=== PATIENT | female | born 2005 | race Caucasian/White ===

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

== ENCOUNTER 2024-02-27 17:56 | Emergency (ER) | payer OTHER, SELFPAY ==
[2024-02-27 19:12] VITALS: BP 115/79; PULSE 96; RESP 18; TEMP 36.8; O2SAT 99; BMI 27.4
--- NOTE | 2024-02-27 19:13 | ED_ITS ---
HPI - URI/Sore Throat General Chief Complaint: General Medical Stated Complaint: Pain in throat & L ear, feverish x2days Time Seen by Provider: 02/27/24 19:14 Source: patient Mode of arrival: ambulatory Limitations: no limitations History of Present Illness ED Provider: RICHMOND JEFFERS Narrative: 18 yo female with no PMH here with c/o sore throat and L ear pain x 2 days. NO travel or sick contacts. Subj fevers and chills she can swallow but it hurts. She has no other symptoms, no n/v/d. MD elicited complaint: fever and sore throat Onset (ago): day(s) (2) Consistency: constant Severity: moderate Able to tolerate fluids by mouth: Yes Exacerbating factors: swallowing Relieving factors: nothing Context: other Associated symptoms: fever, chills, sore throat and ear pain Treatments prior to arrival: none Related Data Previous Rx's ?Medication ?Instructions ?Recorded cephalexin 500 mg capsule 500 mg PO QID #28 caps 12/16/20 doxycycline hyclate 100 mg capsule 100 mg PO BID 7 days #14 caps 12/16/20 mupirocin 2 % topical ointment 1 appl topical TID 7 days #22 grams 12/16/20 amoxicillin 500 mg tablet 500 mg PO BID #20 tabs 02/27/24 fluconazole 150 mg tablet 150 mg PO Q3D 2 doses #2 tabs 02/27/24 Allergies Allergy/AdvReac Type Severity Reaction Status Date / Time No Known Allergies Allergy Verified 02/27/24 19:16 Review of Systems Review of Systems: Constitutional : pos Fever, pos Chills, No Fatigue ENT/Mouth : pos sore throat, No Rhinorrhea Eyes: No Eye Pain, No Swelling, No Redness Cardiovascular : No Chest Pain, No SOB, No Dyspnea on Exertion Respiratory : No Cough, No Sputum Gastrointestinal : No Nausea, No Vomiting, No Diarrhea, No abdominal Pain Genitourinary : No Dysuria, No Urinary Frequency, No Hematuria, Musculoskeletal : No joint pain, No Myalgias, No Joint Swelling Skin : No Skin Lesions, No rash Neuro : No Weakness, No Numbness, No Dizziness, positive Headache All other systems reviewed and are negative PMFSH Past Medical History Attestation statement: The following information was validated with the patient. Source: old records reviewed Medical History No pertinent past medical history Social History Social History (Updated 02/27/24 @ 19:19 by Safia Mendosa DO) Patient Tobacco Use Status: Never used Tobacco Physical Exam Vital Signs: Appearance: Alert. Oriented X3. No acute distress. Eyes: Pupils equal, round and reactive to light. ENT: Pharynx moderate tonsilar erythema, exudates but uvula midline, L TM normal no infection Neck: Normal inspection. Neck supple. CVS: Normal heart rate and rhythm. Pulses normal. Respiratory: No respiratory distress. Breath sounds normal. Abdomen: Soft and nontender. Skin: Skin warm and dry. Normal skin color. Normal skin turgor. Extremities: No lower extremity edema. No calf ttp Neuro: Oriented X 3. No motor deficit. No sensory deficit. CN2-12 intact Medical Decision Making Medical Decision Making [facility] Narrative: 18 yo female with no sig PMH here with c/o ear pain and sore throat she is able to tolerate PO at this time will treat clinically based off history and her presentation - start on amoxicillin for 10 days, given strict precautions to return. Not toxic no signs of CAR BODY INSPECTOR or abscess. Differential Diagnosis Differential Diagnoses: The differential diagnosis associated with the presentation includes strep throat clinically and based off history will treat no signs of CAR BODY INSPECTOR Admission/Observation Consideration of admission/observation: Escalation of care including admission/observation considered tolerating PO stable for DC Independent Historian Clinical information obtained from an independent historian. History obtained from or confirmed by: Spouse Prescription Management I considered prescription management with: Antibiotic Discharge Plan Discharge Clinical Impression: Strep throat Patient Disposition: Home, Self-Care Instructions: Strep Throat (ED) Additional Instructions: stay hydrated drink plenty of fluids take motrin and tylenol for pain return for inability to eat or drink, severe pain, confusion throw away toothbrush after 2 doses of antibiotics Prescriptions: New amoxicillin 500 mg tablet 500 mg PO BID Qty: 20 0RF fluconazole 150 mg tablet 150 mg PO Q3D Qty: 2 0RF Rx Instructions: may repeat second dose 72 hrs after first dose if symptoms persist No Action mupirocin 2 % ointment 1 appl topical TID 7 Days Qty: 22 0RF cephalexin 500 mg capsule 500 mg PO QID Qty: 28 0RF doxycycline hyclate 100 mg capsule 100 mg PO BID 7 Days Qty: 14 0RF Stand Alone Forms: Work/School Release Print Language: Cape Verdean
[2024-02-27 19:22] VITALS: BP 115/79; PULSE 96; RESP 18; TEMP 36.8; O2SAT 99
== END 2024-02-27 19:21 | disposition home or self-care (01) ==
PROVIDERS: Emergency Provider Emergency Medicine
DX: J02.0 Streptococcal pharyngitis (principal)
CPT/HCPCS: 99282; 99283

== ENCOUNTER 2024-03-17 18:04 | Emergency (ER) | payer OTHER, SELFPAY ==
[2024-03-17 18:08] VITALS: BP 106/70; PULSE 70; RESP 18; TEMP 36.5; O2SAT 98; BMI 26.4
--- NOTE | 2024-03-17 18:09 | ED.URI ---
HPI - URI/Sore Throat General Chief Complaint: General Medical Stated Complaint: Sore Throat Time Seen by Provider: 03/17/24 18:12 Source: patient, RN notes reviewed and old records reviewed Mode of arrival: ambulatory History of Present Illness ED Provider: Kira Beltran PA-C [facility] Narrative: 18-year-old female with a past medical history of strep throat diagnosed in our ED on 02/27/2024 s/p finishing course of amoxicillin presenting to the ED complaining of sore throat, subjective fever, and neck stiffness x few days. States finish antibiotics, feels as though she did get better however symptoms returned. Also reports left ear pain. Denies difficulty or inability to swallow, chills, travel, cough Related Data Previous Rx's ?Medication ?Instructions ?Recorded cephalexin 500 mg capsule 500 mg PO QID #28 caps 12/16/20 doxycycline hyclate 100 mg capsule 100 mg PO BID 7 days #14 caps 12/16/20 mupirocin 2 % topical ointment 1 appl topical TID 7 days #22 grams 12/16/20 amoxicillin 500 mg tablet 500 mg PO BID #20 tabs 02/27/24 fluconazole 150 mg tablet 150 mg PO Q3D 2 doses #2 tabs 02/27/24 azithromycin 250 mg tablet See Rx Instructions PO .COMPLEX #6 03/18/24 tabs prednisone 50 mg tablet 50 mg PO DAILY 5 days #5 tabs 03/18/24 Allergies Allergy/AdvReac Type Severity Reaction Status Date / Time No Known Allergies Allergy Verified 03/18/24 04:47 Review of Systems Review of Systems: Yes all other systems are reviewed and are negative Constitutional: Constitutional: Reports as per [facility] Past Medical History Attestation statement: The following information was validated with the patient. Source: old records reviewed Medical History No pertinent past medical history Social History Social History Patient Tobacco Use Status: Never used Tobacco Advance Directives: No Do you have a plan to hurt others: No Plan Physical Exam Vital Signs: Vital Signs: Last Vital Signs Temp 99.1 F 03/17/24 19:38 Pulse 78 03/17/24 19:38 Resp 16 03/17/24 19:38 BP 113/79 03/17/24 19:38 Pulse Ox 98 03/17/24 19:38 O2 Del Method Room Air 03/17/24 19:38 BMI result Body Mass Index 26.4 Const: General: cooperative, healthy appearing and no acute distress Orientation/consciousness: patient oriented x3 Limitations: no limitations HEENT: Head: Yes normal to inspection and Yes atraumatic Ears: hearing grossly normal bilaterally, external ears normal, TM's normal bilaterally and mastoids normal General nose exam: Normal external nose present Face and sinus: Yes normal facial exam Mouth: Normal oral and palatal mucosa present and no drooling Throat: Yes uvula midline, Yes abnormal tonsil (+ mild tonsillar erythema and swelling with faint left tonsillar exudates), No uvula laterally displaced and No uvular edema Eyes: General: appearance normal, both eyes and all related structures EOM: EOMs intact bilaterally Neck: Neck: Yes normal visual inspection, Yes full ROM, Yes no meningeal signs and No anterior neck swelling Resp: Effort & Inspection: normal respiratory effort and no respiratory distress Auscultation: clear to auscultation bilaterally Cardio: Rate: regular rate Heart sounds: S1 normal heart sound present and S2 normal heart sound present GI: Inspection: Yes normal to inspection Palpation (GI): Soft to palpation, nontender, no guarding and not rigid : General: Yes no CVA tenderness Back/Spine/Pelvis: Back: no CVA tenderness Skin: Rashes: no rashes Wounds: no wounds Neuro: General: patient oriented x3, tone normal and no meningeal signs Cranial nerves: Yes CN's II-XII intact bilaterally Gait exam (Neuro): Normal gait present Extrem: General: Yes normal to inspection Course Course Course Narrative: -193--COVID/flu/RSV and rapid strep negative >will test for mono > will d/c prior to results w/close PCP f/u. Will be contacted if positive > discussed with patient will avoid additional Abx at this time as testing is negative & just finished course of Abx. -Monospot negative Results discussed with patient including worrisome signs and symptoms and strict return precautions, and when to return to the emergency department. They verbalized understanding and feel safe for discharge at this time. Medical Decision Making Medical Decision Making [facility] Narrative: 18-year-old female with a past medical history of strep throat diagnosed in our ED on 02/27/2024 s/p finishing course of amoxicillin presenting to the ED complaining of sore throat, subjective fever, and neck stiffness x few days. On exam vital signs stable, NAD, nontoxic appearing, physical exam as noted above. No meningeal signs or appreciable with neck stiffness. Bilateral tonsillar erythema and swelling noted slightly greater on the left with left-sided tonsillar exudates. Uvula midline. No evidence of PRINCIPAL TECHNICAL SPECIALIST/retropharyngeal abscess. No evidence of respiratory compromise or distress, talking in complete sentences. No drooling. Concern for strep pharyngitis vs viral illness. No evidence of acute otitis. Unlikely mastoiditis Plan: Viral testing, rapid strep Please refer to course for remaining clinical decision making, interpretation of labs/imaging results, and discussions with consultants and/or family members. Differential Diagnosis Differential Diagnoses: The differential diagnosis associated with the presentation includes As above Admission/Observation Consideration of admission/observation: Escalation of care including admission/observation considered Lab Data MDM Lab Attestation statement: I reviewed the patient's lab results. Labs: Lab Results 03/17/24 03/17/24 Range/Units 18:20 19:37 Monoscreen Negative (Negative) Influenza Type A (PCR) NEGATIVE (Negative) Influenza Type B (PCR) NEGATIVE (Negative) RSV RNA Qual (PCR) NEGATIVE (Negative) SARS-CoV-2 RNA (RT-PCR) NEGATIVE (Negative) S. pyogenes GrpA UNIQUE Negative (Negative) Radiology Impression Discussion of test interpretation with radiology: I have reviewed the radiologist's reading. External Record Review External record reviewed: Inpatient record, Office record, Outpatient record, Prior outpatient labs, Prior outpatient radiology, Primary care record and Outside ED record Tests considered The following testing was considered but not selected: As above Prescription Management I considered prescription management with: Antibiotic Chronic Conditions Patient?s care impacted by: Other Social Determinants Patient?s care significantly limited by Social Determinants of Health including: Other Social Determinant of Health Attestation Attending Attestation: I was personally present and available for consultation in the ED. I have reviewed everything on the chart that is available and agree with the documentation provided by the RIGOBERTO including discussion about the assessment, treatment plan and discussion. Based on medical record the care appears appropriate. Laron Carrillo MD [facility] Emergency Medicine Discharge Plan Discharge Clinical Impression: Pharyngitis Patient Disposition: Home, Self-Care Instructions: Pharyngitis (ED) Additional Instructions: You tested negative for COVID, flu, RSV and strep throat We tested you for mononucleosis, this is currently pending, you will be contacted with positive results only Gargle with warm saltwater Take Tylenol and ibuprofen Eat cold foods Follow up with her doctor If you have persistent or worsening symptoms, difficulty or inability to swallow, fever unresolved with medications return to the ED Prescriptions: No Action mupirocin 2 % ointment 1 appl topical TID 7 Days Qty: 22 0RF cephalexin 500 mg capsule 500 mg PO QID Qty: 28 0RF doxycycline hyclate 100 mg capsule 100 mg PO BID 7 Days Qty: 14 0RF azithromycin 250 mg tablet See Rx Instructions .ROUTE .COMPLEX Qty: 6 0RF Rx Instructions: For 250 mg dose pack: take 500 mg today (day 1), then 250 mg for 4 days (days 2-5) prednisone 50 mg tablet 50 mg PO DAILY 5 Days Qty: 5 0RF amoxicillin 500 mg tablet 500 mg PO BID Qty: 20 0RF fluconazole 150 mg tablet 150 mg PO Q3D Qty: 2 0RF Rx Instructions: may repeat second dose 72 hrs after first dose if symptoms persist Referrals: Physician,None [Primary Care Provider] - 3 days Interventions: ED Discharge Assessment Last Done: 03/17/24 19:38 Discharge Date/Time: 03/17/24 19:39 Print Language: Grenadian
[2024-03-17 18:53] LABS: IDNOW Serial# 6674DD1D; Strep A Nucleic Acid Negative (Negative)
[2024-03-17 19:25] LABS: Influenza A PCR NEGATIVE (Negative); Influenza B PCR NEGATIVE (Negative); Resp Syncy Virus RNA Qual PCR NEGATIVE (Negative); SARS COV2 PCR INHOUSE NEGATIVE (Negative)
[2024-03-17 19:33] VITALS: BP 113/79; PULSE 78; RESP 16; TEMP 37.3; O2SAT 98
[2024-03-17 19:38] VITALS: BP 113/79; PULSE 78; RESP 16; TEMP 37.3; O2SAT 98
[2024-03-17 20:01] LABS: Monotest Negative (Negative)
== END 2024-03-17 19:39 | disposition home or self-care (01) ==
PROVIDERS: Physician Assistant; Emergency Provider Emergency Medicine
DX: J02.9 Acute pharyngitis, unspecified (principal); H92.02 Otalgia, left ear; R50.9 Fever, unspecified; Z03.818 Encounter for observation for suspected exposure to other biological agents ruled out
CPT/HCPCS: 0241U; 36415; 86308; 87651; 99282; 99283

== ENCOUNTER 2024-03-18 04:43 | Emergency (ER) | payer SELFPAY ==
--- NOTE | ~2024-03-18 | CT_ITS ---
CLINICAL HISTORY: sore throat swollen tonsils CT soft tissue neck with contrast Comparison: None Findings: The visualized intracranial contents are unremarkable. The tonsils may be enlarged. Cervical chain adenopathy is likely reactive. Salivary glands are within normal limits. No sialoliths. No suspicious thyroid nodules. Visualized lung apices are clear. No acute fractures. There is edema of the soft palate and uvula. There is no evidence of abscess. IMPRESSION: Edema/inflammation of the uvula and soft palate with likely enlarged and possibly inflamed tonsils. No evidence of abscess. Please correlate clinically. Likely reactive cervical chain adenopathy. This document has been electronically signed by: Damon Lincoln MD on 03/18/2024 11:01:26
[2024-03-18 04:45] VITALS: BP 109/72; PULSE 82; RESP 16; TEMP 36.9; O2SAT 100; BMI 26.4
--- NOTE | 2024-03-18 07:13 | ED_ITS ---
HPI - General Adult General Chief complaint: General Medical Stated complaint: sore throat Time Seen by Provider: 03/18/24 06:52 Source: patient Mode of arrival: ambulatory Limitations: no limitations History of Present Illness ED Provider: ORQUIDEA Kohli HPI narrative: 18-year-old female presents to the emergency department with sore throat, fatigue, malaise, myalgias she reports she was seen here earlier however decided to leave she had lab work done however never got the results. She reports she tested positive for strep throat 2 weeks ago she took amoxicillin 500 mg p.o. b.i.d. times 10 days with little to no relief. She reports subjective chills, nausea. Denies vomiting, diarrhea, headache, vision changes, dizziness, weakness, chest pain, shortness of breath, abdominal pain. No sick contacts. No recent travel. No concerns for STDs. Related Data Previous Rx's ?Medication ?Instructions ?Recorded cephalexin 500 mg capsule 500 mg PO QID #28 caps 12/16/20 doxycycline hyclate 100 mg capsule 100 mg PO BID 7 days #14 caps 12/16/20 mupirocin 2 % topical ointment 1 appl topical TID 7 days #22 grams 12/16/20 amoxicillin 500 mg tablet 500 mg PO BID #20 tabs 02/27/24 fluconazole 150 mg tablet 150 mg PO Q3D 2 doses #2 tabs 02/27/24 azithromycin 250 mg tablet See Rx Instructions PO .COMPLEX #6 03/18/24 tabs prednisone 50 mg tablet 50 mg PO DAILY 5 days #5 tabs 03/18/24 Allergies Allergy/AdvReac Type Severity Reaction Status Date / Time No Known Allergies Allergy Verified 03/18/24 04:47 Review of Systems 2 Review of Systems: Yes all other systems are reviewed and are negative [facility] Past Medical History Attestation statement: The following information was validated with the patient. Source: old records reviewed and nursing notes reviewed Medical History No pertinent past medical history Social History Social History Patient Tobacco Use Status: Never used Tobacco Advance Directives: No Do you have a plan to hurt others: No Plan Physical Exam ED Vital Signs: Vital Signs - 24 hr 03/18/24 04:45 03/18/24 10:35 Temperature 98.4 F 98.1 F Pulse Rate 82 72 Respiratory Rate 16 16 Blood Pressure 109/72 104/62 Pulse Oximetry 100 98 Oxygen Delivery Method Room Air Room Air BMI result Body Mass Index 26.4 vss Appearance: Alert.? Oriented X3.? No acute distress.? Head: Normocephalic, atraumatic, no step-offs or deformities Eyes: Pupils equal, round and reactive to light.? ENT: Pharynx with bilateral tonsillar hypertrophy, exudate noted to the right tonsil, uvula midline. Patient is speaking in full sentences controlling secretions well. No signs of abscess. Normal hard and soft palates..? Neck: Normal inspection.? Neck supple.? CVS: Normal heart rate and rhythm.? Pulses normal.? Respiratory: No respiratory distress.? Breath sounds normal.? Abdomen: Soft and nontender.? Skin: Skin warm and dry.? Normal skin color.? Normal skin turgor.? Extremities: No lower extremity edema.? No calf ttp. 5/5 strength to bilateral upper and lower extremities Neuro: Oriented X 3.? No motor deficit.? No sensory deficit. CN 2-12 intact Course Reevaluation(s) Reevaluation #1: Patient's CBC with leukocytosis and neutrophil predominance. ESR normal. Chemistry no acute findings needing intervention. CRP elevated 2.48. Patient voices no concerns for STDs or STIs however willing to get prophylactically treated in case this is gonococcal. Time: 11:09 Reevaluation #2: Patient is a throat swabs have been obtained and are pending. CT soft tissue neck with edema and inflammation of the uvula and soft palate with likely enlarged and possibly inflamed tonsils. No evidence of abscess. Will treat with azithromycin as she has already been treated with amoxicillin will also give prednisone. Discuss this case with my attending. Will also give 1 time dose of IM ceftriaxone in case this is gonococcal pharyngitis. Patient is aware of plan she verbalizes understanding. Educated patient on diagnosis and treatment plan, answered all question, patient verbalizes understanding. At this time patient will be discharged home, advised to return with new or worsening symptoms. Educated on worrisome signs and symptoms and when to return. At this time I feel comfortable discharge home. Time: 11:15 Medications Administered Discontinued Medications Generic Name Dose Route Start Last Admin Trade Name Freq PRN Reason Stop Dose Admin Dexamethasone Sodium Phosphate 10 mg 03/18/24 07:17 03/18/24 08:18 Dexamethasone Sod Phosphate 10 Mg/Ml Vial IVPUSH 03/18/24 07:18 10 mg ONCE ONE Administration Iohexol 100 ml 03/18/24 10:05 03/18/24 10:05 Iohexol 350 Mg/Ml 100 Ml Infus..Btl IV 03/18/24 10:06 60 ml ONCE ONE Administration Ketorolac Tromethamine 30 mg 03/18/24 07:17 03/18/24 08:18 Ketorolac Tromethamine 30 Mg/Ml Vial IM 03/18/24 07:18 30 mg ONCE ONE Administration Medical Decision Making Medical Decision Making [facility] Narrative: 18-year-old female presents with worsening sore throat reports 2 weeks ago she was positive for strep she completed a course of antibiotics with little to no improvement. Physical exam Pharynx with bilateral tonsillar hypertrophy, exudate noted to the right tonsil, uvula midline. Patient is speaking in full sentences controlling secretions well. No signs of abscess. Normal hard and soft palates..? History and physical exam concerning for recurrence of strep pharyngitis versus mononucleosis. No signs of peritonsillar abscess, retropharyngeal abscess, Tong's, acute threat to airway. Plan at this time will give 10 mg of p.o. Decadron and repeat viral studies. I may also obtain a swab for gonococcal pharyngitis. Differential Diagnosis Differential Diagnoses: The differential diagnosis associated with the presentation includes (History and physical exam concerning for recurrence of strep pharyngitis versus mononucleosis. No signs of peritonsillar abscess, retropharyngeal abscess, Tong's, acute threat to airway.) Admission/Observation Consideration of admission/observation: Escalation of care including admission/observation considered (Unlikely) Lab Data [facility] Lab Attestation statement: I reviewed the patient's lab results. 03/18/24 07:56 03/18/24 07:56 Labs: Lab Results 03/18/24 03/18/24 03/18/24 Range/Units 07:07 07:56 08:43 WBC 12.0 H (4.8-10.8) X10*3/uL RBC 4.90 (4.20-5.50) X10*6/uL Hgb 12.9 (12.0-16.0) g/dl Hct 38.8 (37.0-47.0) % MCV 79.2 L (80.0-98.0) fL MCH 26.3 L (27.0-33.0) pg MCHC 33.2 (31.0-35.0) g/dl RDW 14.9 (11.0-16.0) % Plt Count 305 (160-400) X10*3/uL MPV 10.1 (9.4-12.3) fL Immature Gran % (Auto) 0.5 H (0.0-0.4) % Neut % (Auto) 81.0 H (45-73) % Lymph % (Auto) 10.4 L (20-40) % [place] % (Auto) 7.0 (2-11) % Eos % (Auto) 0.8 (0-4) % Baso % (Auto) 0.3 (0-2) % Lymph # (Auto) 1.2 (1.2-4.9) X10*3/uL [place] # (Auto) 0.8 (0.1-1.2) X10*3/uL Eos # (Auto) 0.1 (0.0-0.4) X10*3/uL Baso # (Auto) 0.0 (0.0-0.2) X10*3/uL Abs Immat Gran (auto) 0.06 H (0.00-0.03) X10*3/uL Absolute Neuts (auto) 9.7 H (2.0-8.3) x10*3/uL Absolute Nucleated RBC 0.000 (0.0-0.012) X10*3/uL Nucleated RBC % (auto) 0.0 (0.0-0.2) /100WBC ESR 16 (0-20) MM/HR Sodium 139 (135-145) mmol/L Potassium 4.1 (3.3-5.1) mmol/L Chloride 110 H (96-108) mmol/L Carbon Dioxide 20 L (22-29) mmol/L Anion Gap 13 (12-20) BUN 8 L (9-16) mg/dL Creatinine 0.60 (0.5-1.4) mg/dL Estim Creat Clear Calc 127.7 Estimated GFR > 60 Random Glucose 95 (60-115) mg/dL Calcium 9.0 (8.4-10.2) mg/dL Magnesium 2.0 (1.6-2.6) mg/dL Total Bilirubin 1.2 H (0.0-1.0) mg/dL AST 19 (5-31) U/L ALT 8 (0-31) U/L Alkaline Phosphatase 56 (39-117) U/L C-Reactive Protein 2.48 H (< or = 0.50) mg/dL Total Protein 7.6 (6.5-8.0) g/dL Albumin 4.4 (3.5-5.0) g/dL Beta HCG, Quant < 2 mIU/mL Throat N gonorr RNA TMA Cancelled Influenza Type A (PCR) NEGATIVE (Negative) Influenza Type B (PCR) NEGATIVE (Negative) RSV RNA Qual (PCR) NEGATIVE (Negative) SARS-CoV-2 RNA (RT-PCR) NEGATIVE (Negative) S. pyogenes GrpA UNIQUE Negative (Negative) External Record Review External record reviewed: Outpatient record Prescription Management I considered prescription management with: Pain Medication and Antibiotic Chronic Conditions Patient?s care impacted by: Other (denies ) Critical Care Time Critical Care Time Critical Care Time: Yes Total Critical Care Time: 35 Attestation: I attest to this time spent taking care of the patient, obtaining history, physical, reviewing labs, imaging, treatment of patients condition +/- specialist/hospitalist consult Discharge Plan Discharge Clinical Impression: Pharyngitis Patient Disposition: Home, Self-Care Instructions: Pharyngitis (ED) Additional Instructions: Take your medications as prescribed. If you were prescribed antibiotics today, it is important that you take your medication to their entirety, do not skip any doses, do not finish them early. Follow-up with your primary care provider this week. Return to the emergency department with new or worsening symptoms. Such as fevers, chills, chest pain, shortness of breath, nausea, vomiting, dizziness, headache, vision changes, lethargy In case of emergency call 911 Your throat culture is still pending we will call you if results are positive. If not, please continue with the antibiotic regimen prescribed. Findings: The visualized intracranial contents are unremarkable. The tonsils may be enlarged. Cervical chain adenopathy is likely reactive. Salivary glands are within normal limits. No sialoliths. No suspicious thyroid nodules. Visualized lung apices are clear. No acute fractures. There is edema of the soft palate and uvula. There is no evidence of abscess. IMPRESSION: Edema/inflammation of the uvula and soft palate with likely enlarged and possibly inflamed tonsils. No evidence of abscess. Please correlate clinically. Likely reactive cervical chain adenopathy. Prescriptions: New azithromycin 250 mg tablet See Rx Instructions .ROUTE .COMPLEX Qty: 6 0RF Rx Instructions: For 250 mg dose pack: take 500 mg today (day 1), then 250 mg for 4 days (days 2-5) prednisone 50 mg tablet 50 mg PO DAILY 5 Days Qty: 5 0RF No Action mupirocin 2 % ointment 1 appl topical TID 7 Days Qty: 22 0RF cephalexin 500 mg capsule 500 mg PO QID Qty: 28 0RF doxycycline hyclate 100 mg capsule 100 mg PO BID 7 Days Qty: 14 0RF amoxicillin 500 mg tablet 500 mg PO BID Qty: 20 0RF fluconazole 150 mg tablet 150 mg PO Q3D Qty: 2 0RF Rx Instructions: may repeat second dose 72 hrs after first dose if symptoms persist Referrals: Physician,None [Primary Care Provider] - 2 days Stand Alone Forms: Work/School Release Print Language: German
[2024-03-18 07:23] LABS: IDNOW Serial# 58CA691E; Strep A Nucleic Acid Negative (Negative)
[2024-03-18 08:02] LABS: MANUAL DIFF FLAG NO
[2024-03-18 08:12] LABS: Influenza A PCR NEGATIVE (Negative); Influenza B PCR NEGATIVE (Negative); Resp Syncy Virus RNA Qual PCR NEGATIVE (Negative); SARS COV2 PCR INHOUSE NEGATIVE (Negative)
[2024-03-18 08:16] LABS: Alanine Aminotransferase 8 U/L (0-31); Albumin Level 4.4 g/dL (3.5-5.0); Alkaline Phosphatase 56 U/L (39-117); Anion Gap 13 (12-20); Aspartate Amino Transferase 19 U/L (5-31); Bilirubin Total 1.2 mg/dL (0.0-1.0); Blood Urea Nitrogen 8 mg/dL (9-16); C Reactive Protein 2.48 mg/dL (< or = 0.50); Carbon Dioxide 20 mmol/L (22-29); Chloride 110 mmol/L (96-108); Creatinine Clr Calc Pharmacy 127.7; Estimated Glomerular Filt Rate > 60; Glucose Random 95 mg/dL (60-115); Potassium 4.1 mmol/L (3.3-5.1); Sodium 139 mmol/L (135-145); Total Protein 7.6 g/dL (6.5-8.0)
[2024-03-18] MEDS: Ketorolac Tromethamine 30 MG/ML VIAL IM (08:18)
[2024-03-18] MEDS: dexAMETHasone sod phosphate 10 MG/ML VIAL IVPUSH (08:18)
[2024-03-18 08:45] LABS: Basophils Percent Auto 0.3 % (0-2); Eosinophils Absolute Auto 0.1 X10*3/uL (0.0-0.4); Eosinophils Percent Auto 0.8 % (0-4); Hematocrit 38.8 % (37.0-47.0); Hemoglobin 12.9 g/dl (12.0-16.0); Imm Gran Abs Auto 0.06 X10*3/uL (0.00-0.03); Imm Gran Pct Auto 0.5 % (0.0-0.4); Lymphocytes Absolute Auto 1.2 X10*3/uL (1.2-4.9); Lymphocytes Percent Auto 10.4 % (20-40); Mean Corpuscular HGB Conc 33.2 g/dl (31.0-35.0); Mean Corpuscular Hemoglobin 26.3 pg (27.0-33.0); Mean Corpuscular Volume 79.2 fL (80.0-98.0); Mean Platelet Volume 10.1 fL (9.4-12.3); Monocytes Absolute Auto 0.8 X10*3/uL (0.1-1.2); Neutrophils Absolute Auto 9.7 x10*3/uL (2.0-8.3); Platelet Count 305 X10*3/uL (160-400); Red Cell Distribution Width 14.9 % (11.0-16.0)
[2024-03-18 09:48] LABS: HCG Quantitative < 2 mIU/mL
[2024-03-18 10:01] LABS: Erythrocyte Sedimentation Rate 16 MM/HR (0-20)
[2024-03-18] MEDS: iohexoL 350 MG/ML 100 ML INFUS..BTL IV (10:05)
[2024-03-18 10:35] VITALS: BP 104/62; PULSE 72; RESP 16; TEMP 36.7; O2SAT 98
[2024-03-18 11:33] VITALS: BP 107/65; PULSE 75; RESP 17; TEMP 36.7; O2SAT 98
--- NOTE | 2024-03-18 11:46 | PC.NURSE ---
No blood cultures ordered per S. QUAN Kohli.
[2024-03-18] MEDS: cefTRIAXone sodium 500 MG VIAL IM (11:54)
[2024-03-18 11:57] VITALS: BP 107/65; PULSE 75; RESP 17; TEMP 36.7; O2SAT 98
[2024-03-22 23:28] LABS: C. Trachomatis RNA TMA, Throat NOT DETECTED; N. gonorrhoeae RNA TMA, Throat NOT DETECTED
== END 2024-03-18 11:57 | disposition home or self-care (01) ==
PROVIDERS: Physician Assistant; Emergency Provider Emergency Medicine
DX: J02.9 Acute pharyngitis, unspecified (principal); R10.2 Pelvic and perineal pain; R11.0 Nausea; M79.10 Myalgia, unspecified site; Z79.899 Other long term (current) drug therapy; Z03.818 Encounter for observation for suspected exposure to other biological agents ruled out
CPT/HCPCS: 0241U; 36415; 70491; 80053; 83735; 84702; 85025; 85652; 86140; 87070; 87205; 87491; 87591; 87651; 96372; 96374; 99283; 99284; J0696; J1100; J1885; Q9967

== ENCOUNTER → 2024-03-18 08:58 | Outpatient (BNV) | payer SELFPAY | PROVIDERS: Emergency Provider Emergency Medicine; Visit Provider Radiology Diagnostic Radiology | DX: J02.9 Acute pharyngitis, unspecified (principal); J35.1 Hypertrophy of tonsils | CPT/HCPCS: 70491 ==